=== PATIENT | female | born 1970 | race Caucasian/White ===

== ENCOUNTER 2020-07-07 08:28 | Day surgery (SDC) | payer MEDICAID ==
[~2020-07-07 08:28] MED LIST: LEVO75 PO; SODIUM CHLORIDE 0.9% 1,000 ML ONE
[2020-07-07] MEDS ORDERED: PROPOFOL 1% 20 ML VIAL IVP ONE (08:29)
[2020-07-07] MEDS ORDERED: SODIUM CHLORIDE 0.9% 1,000 ML IV ONE (08:30)
[2020-07-07] MEDS ORDERED: FERR-82 PO (09:08)
== END 2020-07-07 12:15 | disposition home or self-care (01) ==
LOC: SURGERY 08:28
PROVIDERS: ATTEND Internal Medicine Gastroenterology
DX: K63.89 Other specified diseases of intestine (principal); K64.8 Other hemorrhoids; K29.50 Unspecified chronic gastritis without bleeding; K31.89 Other diseases of stomach and duodenum; Z98.890 Other specified postprocedural states; Z11.59 Encounter for screening for other viral diseases
CPT/HCPCS: 43239; 45380; 84703; 87635; 88305; 88312; 88313; C1769; J2704; J7030